=== PATIENT | male | born 1970 | race Caucasian/White ===

== ENCOUNTER → 2023-06-04 07:36 | Outpatient (REF) | payer OTHER, SELFPAY | LOC: EMG 07:36 | PROVIDERS: ATTENDING PHYSICIAN Orthopaedic Surgery; FAMILY PHYSICIAN Physician Assistant Medical | DX: M95.8 Other specified acquired deformities of musculoskeletal system (principal); M79.601 Pain in right arm | CPT/HCPCS: 95886; 95907 ==

== ENCOUNTER 2024-04-09 03:33 | Emergency (ER) | payer OTHER, SELFPAY ==
[2024-04-09 03:33] VITALS: BMI 34.0
[2024-04-09 03:40] VITALS: BP 139/76
[2024-04-09 04:10] LABS: Urine Albumin 1+ (Neg - Trace); Urine Bilirubin 1+ (Negative); Urine Character Slightly Cloudy (Clear); Urine Color Amber; Urine Glucose Negative (Negative); Urine Ketone Negative (Negative); Urine Leukocyte Trace (Negative); Urine Nitrite Negative (Negative); Urine Occult Blood 4+ (Negative); Urine Urobilinogen Negative (Neg - 1+)
--- NOTE | 2024-04-09 04:14 | ED.GENMED ---
History of Present Illness
General
Chief Complaint: Flank Pain
Source: patient
Exam Limitations: none
Time Seen by Provider: 04/09/24 03:49
Nursing documentation reviewed up to this point in time: agreed with
History of Present Illness
History of Present Illness:
This a pleasant 54-year-old male that presents with left sided flank pain that radiates around to his left lower abdomen. He states that this pain began around 530 this afternoon. He did take a Flomax that he had lying around from a previous
kidney stone. He states that this seemed to help his symptoms. He did report nausea without vomiting. Denies chest pain or shortness of breath. Reports no fevers or chills. He does have a history of kidney stones and follows with Dr. Arnold.
Denies any other symptoms at this time.
Past History
Past History
ED Past Medical History: HTN, Psychiatric (Anxiety) and Other (MVP, Kidney stones)
ED Past Surgical History: Orthopedic
Social History
Tobacco: Non-smoker
Alcohol: Occasional
Drug: None
Personal:
Living: alone
Employment: Employed
Family History
Family History: Hypertension, CAD and Other
Review of Systems
Review of Systems
Allergies reviewed?: Yes
All Other Systems: ROS reviewed and negative except as documented in HPI and ROS
Constitutional: Reports no symptoms
EENT: Reports no symptoms
Respiratory: Reports no symptoms
Cardiac: Reports no symptoms
ABD/GI: Reports no symptoms
: Reports no symptoms
Musculoskeletal: Reports back pain (Left-sided flank pain.)
Skin: Reports no symptoms
Neurological: Reports no symptoms
Endocrine: Reports no symptoms
Hematologic/Lymphatic: Reports no symptoms
Psychiatric: Reports no symptoms
Phy Exam
General Physical Exam
General Presentation: well appearing and mild distress
General age: appears stated age
General Skin: warm and dry
General Habitus: normal
General Mental: alert
General Hydration: appears well hydrated
ENT Exam
ENT Exam: EOMI, pharynx normal, neck supple and normocephalic
Eye Exam
Eye Exam: PERRL, cornea clear and conjunctiva normal
Cardiovascular Exam
Cardiovascular Exam: regular rate/rhythm, no edema, no murmur and normal peripheral pulses
Pulmonary Exam
Pulmonary Exam: lungs clear, no respiratory distress, no rales, no crackles, no rhonchi, no stridor, no wheezing and no cough
Gastrointestinal Exam
Gastrointestinal Exam: normal bowel sounds, non tender, soft, no organomegaly, no pulsatile mass, non distended and cva tenderness (Left-sided)
Neurological Exam
Neurological Exam: alert, oriented x3, no motor deficits and speech normal
Musculoskeletal Exam
Musculoskeletal Exam: full ROM and no edema
Skin Exam
Skin Exam: normal color, warm/dry, no rash and no petechia
Psychiatric Exam
Psychiatric Exam: normal mood/affect
Course
Orders/Labs/Results
Orders:
Orders
04/09/24 03:50
CT Abd/pel Without Iv Or Oral Urgent
Comment:
Reason For Exam: l flank pain
04/09/24 03:53
UA Reflex to Culture [Urinalysis Reflex To Culture] Urgent
Date Specimen was Collected: 04/09/24
Time Specimen was Collected: 03:47
Urine Microscopic Reflex Cult Urgent
Urine Culture Urgent
ELISHA Source: U
Specimen Description:
Date Specimen was Collected: 04/09/24
Time Specimen was Collected: 03:47
04/09/24 04:13
0.9% Sodium Chloride 1000 ml [Nss] 1,000 ml IV BOLUS
Ketorolac [Toradol] 30 mg IV NOW STA
Ondansetron Injectable [Zofran] 4 mg IV NOW STA
04/09/24 04:15
Complete Blood Count/With Diff Urgent
Comprehensive Metabolic Panel Urgent
04/09/24 05:29
HYDROmorphone [Dilaudid] 0.5 mg IV NOW STA
Abnormal Lab Results
04/09/24 04/09/24
03:53 04:15
RBC 4.66 L 10^6/uL
(4.70-6.10)
MPV 11.3 H fL
(7.4-10.4)
Absolute Monos (auto) 0.8 H 10^3/uL
(0.1-0.6)
Monocytes % 11.0 H %
(1.7-9.3)
BUN 24 H mg/dl
(9-20)
Glucose 126 H mg/dl
(70-99)
Ur Occult Blood Reflex 4+ A
(Negative)
Urine Bilirubin 1+ A
(Negative)
Leukocyte Esterase Rfl Trace A
(Negative)
Urine RBC >100 A /HPF
(0-2)
Urine Bacteria (Reflex) Many A
(Negative)
Urine Albumin (Reflex) 1+ A
(Neg - Trace)
04/09/24 04:15
04/09/24 04:15
Vital Signs
Initial and Last Documented VS:
Initial Vital Signs
Temp Pulse Resp BP Pulse Ox
98.1 F 50 18 139/76 99
04/09/24 03:40 04/09/24 03:40 04/09/24 03:40 04/09/24 03:40 04/09/24 03:40
Last Documented Vital Signs
Temp Pulse Resp BP Pulse Ox
98.1 F 50 18 158/89 99
04/09/24 03:40 04/09/24 03:40 04/09/24 03:40 04/09/24 05:00 04/09/24 05:15
*Critical Care Note
Total Time (30-74mins, 75-104mins- exclusive of procedures): Not Applicable
Update Note
Update Note:
CT abdomen and pelvis without IV contrast
IMPRESSION:
Mild left hydronephrosis secondary to a 6 mm stone lodged in the proximal left ureter, compatible with obstructive uropathy. Correlate with urinalysis to assess for superimposed infection.
Liver is enlarged and steatotic. No cholecystitis or pancreatitis. Appendix normal. No bowel obstruction or diverticulitis.
04/09/2024 0530 AM: Patient is still reporting some pain. He request narcotic pain medication. He states he has had narcotic pain medicine in the past. Denies fever, chills. Reviewed CAT scan findings with patient. Patient wishes to be
discharged. He will call for a ride in the morning. Patient will follow-up with Dr. Arnold as needed. I did offer him admission to the hospital for continued observation and especially for pain control. At this point he refused.
ED Attending Note
-
Portions of this chart may have been created with voice recognition software.� Occasional wrong word or��sound alike� substitutions may have occurred due to the inherent limitations of voice recognition software.
Discharge Plan
Departure
Patient Disposition: Home (Routine Discharge)
Date of Disposition: 04/09/24
Time of Disposition: 05:32
Patient with high blood pressure during this ER visit?: Yes
Condition: Good
Discharge Problem:
Left-sided kidney stone
Instructions: Kidney Stones (DC), How to Strain Your Urine, BLOOD PRESSURE, Narcotic Pain Medication
Prescriptions:
New
oxycodone-acetaminophen [Percocet] 5-325 mg Tablet
1 tab PO Q6HPRN PRN (Reason: pain) Qty: 10 0RF
diclofenac sodium 75 mg tablet,delayed release (DR/EC)
75 mg PO BID Qty: 10 0RF
No Action
lorazepam 0.5 MG tablet
0.5 mg PO DAILYPRN PRN (Reason: anxiety)
buspirone [BuSpar] 10 mg Tablet
10 mg PO BID
lisinopril 10 mg Tablet
10 mg PO BID
Metoprolol Tab
1 tab PO DAILY
ketorolac 10 mg tablet
10 mg PO QID PRN (Reason: pain) Qty: 20 0RF
ondansetron 4 mg tablet,disintegrating
4 mg PO QID PRN (Reason: nausea and vomiting) Qty: 20 0RF
hydrocodone-acetaminophen 5-300 mg tablet
1 tab PO Q8H PRN (Reason: pain) Qty: 10 0RF
Referrals:
Lizzie Kelly PA-C [Family Provider] -
Werner Arnold Jr., MD [Active] - Call in 1-3 days for appt
Activity Restrictions/Additional Instructions:
Please continue to take your Flomax as directed. Your prescriptions were sent electronically to the pharmacy that you specified.
It was a pleasure meeting you and taking part in your care. We hope for your continued healing and wellness.
Please read discharge instructions in their entirety. However, they are for general education and may not describe your exact diagnosis at discharge. Information on your ER visit and medical conditions were discussed with you along with appropriate
follow up information...
If indicated, please take your medications as instructed and indicated on discharge paperwork.
Please schedule a follow up appointment as directed. Call to schedule an appointment
Please return to the emergency department with ANY change in, persisting, or worsening of symptoms. If any of your symptoms do not improve, or persist, or become more severe within 6-12 hours, please return to the emergency department for further
care.
Please return to the emergency department if you develop a headache, neck pain/stiffness, fever greater than 100.4F, chest pain, shortness of breath, persistent nausea, vomiting, slurred speech, difficulty walking, numbness/tingling, weakness, signs
of infection or any other symptoms that are worrisome to you.
If you have any questions or concerns please do not hesitate to call the Hospital at or E-mail me directly at [email or web address]
Interventions
Interventions:
*Risk Screen - Suicide Last Done: 04/09/24 03:34
*General Assessment Last Done: 04/09/24 03:40
*Neglect/Abuse Screening Last Done: 04/09/24 03:40
*ED COVID-19 Vaccine History Last Done: 04/09/24 03:40
UP-Bftuuf-Uumdqwuwrt Assessment Last Done: 04/09/24 04:40
ED-Male Genitourinary Assessment Last Done: 04/09/24 04:40
Discharge Date and Time
Print Language: AZERBAIJANI
[2024-04-09] MEDS: ZOFRAN 4 MG IV (04:22)
[2024-04-09] MEDS: TORADOL 30 MG IV (04:22)
[2024-04-09] MEDS: NSS 1000 IV (04:22)
[2024-04-09 04:31] LABS: Urine Mucus Many
[2024-04-09 04:31] LABS: % Basophils 0.5 % (0-2); % Eosinophils 1.8 % (0-6); % Immature Granulocytes 0.3 % (0-0.5); % Lymphocytes 23.6 % (20.5-51.1); % Neutrophils 62.8 % (42.2-75.2); Absolute Eosinophils 0.1 10^3/uL (0-0.7); Absolute Lymphocytes 1.7 10^3/uL (1.2-3.4); Absolute Monocytes 0.8 10^3/uL (0.1-0.6); Absolute Neutrophils 4.6 10^3/uL (1.4-6.5); Hematocrit 40.9 % (39.0-52.0); Hemoglobin 14.4 g/dL (13.0-18.0); Mean Corp Hgb Conc. 35.2 g/dL (33.0-37.0); Mean Corpuscular Hgb 30.9 pg (27.0-31.0); Mean Corpuscular Volume 87.8 fL (80.0-94.0); Mean Platelet Volume 11.3 fL (7.4-10.4); Nucleated Red Blood Cells % 0 % (-); Platelet Count 209 10^3/uL (130-400); Red Blood Cell Count 4.66 10^6/uL (4.70-6.10); Red Cell Dist. Width 12.2 % (11.5-14.5); White Blood Cell Count 7.3 10^3/uL (4.8-10.8)
[2024-04-09 04:35] VITALS: BP 155/82
[2024-04-09 04:37] LABS: Urine Bacteria Many (Negative); Urine Red Blood Cell >100 /HPF (0-2); Urine Uric Acid Crystals Seen
[2024-04-09 04:51] LABS: Urine Squamous Cell >30 /LPF (Few)
[2024-04-09 04:54] LABS: ALT (SGPT) 48 U/L (0-50); AST (SGOT) 32 U/L (17-59); Albumin 4.5 g/dl (3.5-5.0); Alkaline Phosphatase 63 U/L (38-126); Blood Urea Nitrogen 24 mg/dl (9-20); Calcium 9.3 mg/dl (8.4-10.2); Carbon Dioxide 26 mmol/L (22-30); Chloride 104 mmol/L (98-107); Estimated Creatinine Clearance 114 ml/min; Glucose 126 mg/dl (70-99); Potassium 4.4 mmol/L (3.5-5.1); Sodium 141 mmol/L (135-145); Total Bilirubin 0.9 mg/dl (0.2-1.3); Total Protein 7.1 g/dl (6.3-8.2); eGFR > 60.00
[2024-04-09 05:00] VITALS: BP 158/89
[2024-04-09] MEDS: DILAUDID 0.5 MG IV (05:37)
[2024-04-09 06:00] VITALS: BP 142/82
[2024-04-09 07:00] VITALS: BP 138/85
[2024-04-09 08:00] VITALS: BP 129/76
== END 2024-04-09 08:22 | disposition home or self-care (01) ==
LOC: EMR 03:33
PROVIDERS: EMERGENCY PHYSICIAN Student in an Organized Health Care Education/Training Program; FAMILY PHYSICIAN Physician Assistant Medical
DX: N20.0 Calculus of kidney (principal); R11.0 Nausea; R16.0 Hepatomegaly, not elsewhere classified; I10 Essential (primary) hypertension; F41.9 Anxiety disorder, unspecified; I34.1 Nonrheumatic mitral (valve) prolapse; Z87.442 Personal history of urinary calculi; Z86.16 Personal history of COVID-19; Z88.5 Allergy status to narcotic agent
CPT/HCPCS: 99284; 96374; 96375 ×2; 96361; 74176; 80053; 81003; 81015; 85025; 87086

== ENCOUNTER → 2024-08-30 14:57 | Outpatient (REF) | payer OTHER, SELFPAY | LOC: RCS 14:57 | PROVIDERS: ATTENDING PHYSICIAN Internal Medicine Interventional Cardiology; FAMILY PHYSICIAN Physician Assistant Medical | DX: I34.1 Nonrheumatic mitral (valve) prolapse (principal); I34.0 Nonrheumatic mitral (valve) insufficiency | CPT/HCPCS: 93306 ==

== ENCOUNTER 2025-05-05 17:23 | Emergency (ER) | payer OTHER, SELFPAY ==
[2025-05-05 17:31] VITALS: BP 152/99
[2025-05-05 18:01] LABS: Hematocrit 43.2 % (39.0-52.0); Hemoglobin 14.8 g/dL (13.0-18.0); Mean Corp Hgb Conc. 34.3 g/dL (33.0-37.0); Mean Corpuscular Volume 88.3 fL (80.0-94.0); Nucleated Red Blood Cells % 0 % (-); Platelet Count 209 10^3/uL (130-400); Red Cell Dist. Width 12.3 % (11.5-14.5)
[2025-05-05 18:14] LABS: ALT (SGPT) 50 U/L (0-50); AST (SGOT) 31 U/L (17-59); Albumin 4.9 g/dl (3.5-5.0); Alkaline Phosphatase 70 U/L (38-126); Blood Urea Nitrogen 18 mg/dl (9-20); Calcium 9.3 mg/dl (8.4-10.2); Carbon Dioxide 27 mmol/L (22-30); Chloride 105 mmol/L (98-107); Glucose 118 mg/dl (70-99); Lipase 84 U/L (23-300); Potassium 4.5 mmol/L (3.5-5.1); Sodium 139 mmol/L (135-145); Total Protein 7.9 g/dl (6.3-8.2); eGFR > 60.00
[2025-05-05 19:06] LABS: Urine Character Cloudy (Clear)
--- NOTE | 2025-05-05 19:26 | ED.GENMED ---
History of Present Illness
General
Chief Complaint: Flank Pain
Source: patient
Time Seen by Provider: 05/05/25 19:21
History of Present Illness
History of Present Illness:
55-year-old male with a history of kidney stones presents with complaints of pain in the left flank radiating around to the left lower quadrant and then groin area that started at approximately 2 PM today and continued upon presentation here. He
denies associated dysuria, hematuria, difficulty urinating, fever, chills, chest pain, shortness of breath, or other complaints. While waiting in the waiting room, patient urinated and passed a visible stone. His symptoms have fully resolved. He
denies any symptoms at this time. He states that his symptoms are very consistent with prior episodes of kidney stones in the past.
Past History
Past History
ED Past Medical History: HTN, Psychiatric (Anxiety) and Other (MVP, Kidney stones)
ED Past Surgical History: Orthopedic
Social History
Tobacco: Non-smoker
Alcohol: Occasional
Drug: None
Personal:
Living: alone
Employment: Employed
Family History
Family History: Hypertension, CAD and Other
Phy Exam
Physical Exam
Physical Exam:
GENERAL: Alert , in no apparent distress
EYE: pupils equal and round
NECK: Supple
ENT: mmm.
CARDIAC: Regular rate and rhythm .
LUNGS: Clear breath sounds bilaterally, no acute respiratory distress, no wheezes/rales/rhonchi
ABDOMEN: Soft, without focal tenderness,
NEUROLOGICAL: Alert and oriented, nonfocal, no facial droop, gait normal
SKIN: Warm and dry, skin intact.
MUSCULOSKELETAL: No edema, well perfused.
PSYCH: Normal and appropriate interaction.
Course
Orders/Labs/Results
Orders:
Orders
05/05/25 17:41
Complete Blood Count/With Diff Urgent
Comprehensive Metabolic Panel Urgent
Lipase Urgent
Urinalysis Reflex To Culture Urgent
Date Specimen was Collected: 05/05/25
Time Specimen was Collected: 17:34
Urine Microscopic Reflex Cult Urgent
Abnormal Lab Results
05/05/25
17:41
MPV 10.6 H fL
(7.4-10.4)
Absolute Monos (auto) 0.7 H 10^3/uL
(0.1-0.6)
Glucose 118 H mg/dl
(70-99)
Urine Ketones 1+ A
(Negative)
Ur Occult Blood Reflex 4+ A
(Negative)
Urine Albumin (Reflex) 2+ A
(Neg - Trace)
05/05/25 17:41
05/05/25 17:41
Vital Signs
Initial and Last Documented VS:
Initial Vital Signs
Temp Pulse Resp BP Pulse Ox
97.3 F 60 18 152/99 100
05/05/25 17:31 05/05/25 17:31 05/05/25 17:31 05/05/25 17:31 05/05/25 17:31
Last Documented Vital Signs
Temp Pulse Resp BP Pulse Ox
97.3 F 60 18 152/99 100
05/05/25 17:31 05/05/25 17:31 05/05/25 17:31 05/05/25 17:31 05/05/25 17:31
*Pulse Oximetry
SaO2: 100
Oxygen Mode of Delivery: Room air
Patient hypoxic: no
*Critical Care Note
Total Time (30-74mins, 75-104mins- exclusive of procedures): Not Applicable
Update Note
Update Note:
Patient presents to the Emergency Department with ___flank pain
Number and Complexity of Problems Addressed at the Encounter
� Chronic conditions affecting care:
� Acute Exacerbation and/or Progression of Chronic Illness:
� Differential Diagnosis includes: But not limited to kidney stone, renal infarct, pyelonephritis/UTI, nonspecific back pain, etc. etc.
Amount and/or Complexity of Data to be Reviewed and Analyzed
� I performed an independent evaluation of and my interpretation is:
EKG:
CT:
Xrays:
Laboratory Studies:
Other:
� Review of other/old records reveals:
� Clinical information was obtained by an independent historian:
� Prescriptions/Medications Considered but not given:
� Further testing considered but not performed:
Risk of Complications and/or Morbidity or Mortality of Patient Management
� Social determinants of health affecting care:
� Discussion with other providers (PCP, Hospitalists, Consultants, etc):
� Escalation of care including admission/observation vs risk of discharge considered: Patient passed a visible stone, now asymptomatic, history and physical very consistent with passed stone. Labs and urine reviewed, no
indications of renal insufficiency or infection. Patient is afebrile here. I did prescribe the patient Flomax and recommend that he take it each day, urology nonurgent follow-up, I discussed with him reasons to return to the ER.
ED Attending Note
-
Portions of this chart may have been created with voice recognition software.� Occasional wrong word or��sound alike� substitutions may have occurred due to the inherent limitations of voice recognition software.
Discharge Plan
Departure
Patient Disposition: Home (Routine Discharge)
Date of Disposition: 05/05/25
Time of Disposition: 19:26
Patient with high blood pressure during this ER visit?: Yes
Condition: Good
Discharge Problem:
Kidney stone
Instructions: Kidney Stones (DC), BLOOD PRESSURE
Prescriptions:
New
tamsulosin [Flomax] 0.4 mg capsule
0.4 mg PO DAILY Qty: 30 0RF
No Action
lorazepam 0.5 MG tablet
0.5 mg PO DAILYPRN PRN (Reason: anxiety)
buspirone [BuSpar] 10 mg Tablet
10 mg PO BID
lisinopril 10 mg Tablet
10 mg PO BID
Metoprolol Tab
1 tab PO DAILY
ketorolac 10 mg tablet
10 mg PO QID PRN (Reason: pain) Qty: 20 0RF
ondansetron 4 mg tablet,disintegrating
4 mg PO QID PRN (Reason: nausea and vomiting) Qty: 20 0RF
hydrocodone-acetaminophen 5-300 mg tablet
1 tab PO Q8H PRN (Reason: pain) Qty: 10 0RF
oxycodone-acetaminophen [Percocet] 5-325 mg Tablet
1 tab PO Q6HPRN PRN (Reason: pain) Qty: 10 0RF
diclofenac sodium 75 mg tablet,delayed release (DR/EC)
75 mg PO BID Qty: 10 0RF
Referrals:
Werner Arnold Jr., MD [Active, Urology] - Next open appointment
Activity Restrictions/Additional Instructions:
IF YOU DEVELOP RECURRENT NEW OR PERSISTENT PAIN, FEVER, VOMITING, CHEST PAIN, SHORTNESS OF BREATH, DIFFICULTY URINATING, PAIN WITH URINATION, OR OTHER WORRISOME SIGNS, PLEASE RETURN TO THE ER IMMEDIATELY!
Interventions
Interventions:
*Risk Screen - Suicide Last Done: 05/05/25 17:31
*General Assessment Last Done: 05/05/25 17:31
*Neglect/Abuse Screening Last Done: 05/05/25 17:31
*ED COVID-19 Vaccine History Last Done: 05/05/25 17:31
*ED Influenza Vaccine History Last Done: 05/05/25 17:31
Discharge Date and Time
Print Language: MONGOLIAN
[2025-05-05 19:27] VITALS: BP 135/87
[2025-05-05 19:40] LABS: Urine Squamous Cell 0-2 /LPF (Few)
[2025-05-05 19:41] LABS: Urine Red Blood Cell 70-80 /HPF (0-2)
== END 2025-05-05 19:39 | disposition home or self-care (01) ==
LOC: EMR 17:23
PROVIDERS: Emergency Medicine; EMERGENCY PHYSICIAN Emergency Medicine; FAMILY PHYSICIAN Physician Assistant Medical
DX: N20.0 Calculus of kidney (principal); F41.9 Anxiety disorder, unspecified; I10 Essential (primary) hypertension; I34.1 Nonrheumatic mitral (valve) prolapse; Z82.49 Family history of ischemic heart disease and other diseases of the circulatory system; Z87.442 Personal history of urinary calculi
CPT/HCPCS: 99283; 80053; 81003; 81015; 83690; 85025

== ENCOUNTER → 2025-07-22 07:58 | Outpatient (REF) | payer OTHER, SELFPAY | LOC: RAD 07:58 | PROVIDERS: ATTENDING PHYSICIAN Physician Assistant Medical | DX: R59.1 Generalized enlarged lymph nodes (principal) | CPT/HCPCS: 76536 ==